=== PATIENT | male | born 1975 | race Caucasian/White ===

== ENCOUNTER 2018-10-14 16:27 | Emergency (ER) | payer OTHER, MEDICARE, MEDICAID, SELFPAY ==
[2018-10-14 16:28] VITALS: BP 135/88; PULSE 58; RESP 14; TEMP 36.4; O2SAT 98; BMI 36.8
[2018-10-14 16:48] VITALS: O2SAT 98
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
--- NOTE | 2018-10-14 16:52 | CT_ITS ---
STUDY: CT CERVICAL SPINE WITHOUT CONTRAST REASON FOR EXAM: Male, 43 years old. Pain. Injury RADIATION DOSAGE (If Supplied By Facility): CTDIvol = ( 29.61 ) mGy, DLP = ( 763.55 ) mGycm TECHNIQUE: High resolution transaxial imaging was performed without contrast material. Sagittal and coronal images were reconstructed. Individualized dose optimization techniques were used for this CT. COMPARISON: None FINDINGS: Normal craniovertebral junction. Normal anterior atlantoaxial articulation. Normal odontoid process. There is straightening of the normal cervical lordosis. There is no acute fracture. Normal vertebral bodies and posterior osseous elements. C2-3: Normal endplates. Normal disc height and morphology. Normal central canal and intervertebral neuroforamina. C3-4: Normal endplates. Normal disc height and morphology. Normal central canal and intervertebral neuroforamina. C4-5: Normal endplates. Normal disc height and morphology. Normal central canal and intervertebral neuroforamina. C5-6: Disc bulge with mild spurring. Normal central canal and intervertebral neuroforamina. C6-7: Disc bulge with mild spurring. Normal central canal and intervertebral neuroforamina. C7-T1: Normal endplates. Normal disc height and morphology. Normal central canal and intervertebral neuroforamina. Normal visualized soft tissue structures. There are calcified nodules of the thyroid gland CT/Spine Cervical without Contras IMPRESSION: Mild degenerative changes. No fracture. Electronically Signed: Adolfo Cox MD at 17:37 EDT , Service support ,
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
--- NOTE | 2018-10-14 18:52 | ED.DEP ---
ED Disposition - Plan for ED Patient: Disposition: Home or Assisted Living Instructions: ED Head Injury Closed Referrals: Josefina Tiwari MD [Primary Care Provider] - 1 Week
[2018-10-14 19:11] VITALS: BP 128/68; PULSE 69; RESP 15; O2SAT 97
== END 2018-10-14 19:14 | disposition home or self-care (01) ==
PROVIDERS: Emergency Provider Emergency Medicine; Family Provider Internal Medicine; PCP Internal Medicine
DX: S00.81XA Abrasion of other part of head, initial encounter (principal); V86.09XA Driver of other special all-terrain or other off-road motor vehicle injured in traffic accident, initial encounter; Y93.89 Activity, other specified; Y92.9 Unspecified place or not applicable; I10 Essential (primary) hypertension
CPT/HCPCS: 70450; 70486; 71046; 72125; 99282